=== PATIENT | female | born 1960 | race Caucasian/White ===

== ENCOUNTER 2017-07-06 12:53 | Emergency (ER) | payer OTHER ==
[2017-07-06] MEDS ORDERED: ONDANSETRON HCL INJ/PF 4 MG/2 ML SDV IV ONE (13:12)
[2017-07-06] MEDS ORDERED: MORPHINE SULFATE 10 MG/ML INJ IV ONE ×2 (13:12→14:06)
[2017-07-06] MEDS ORDERED: NORMAL SALINE 1000 ML 1,000 ML IV ONE (13:13)
[2017-07-06] MEDS ORDERED: KETOROLAC TROMETHAMINE INJ/PF 30 MG/1 ML SDV IV ONE (14:07)
--- NOTE | 2017-07-06 14:10 | RADIOLOGY REPORT (SQ) ---
EXAM DESCRIPTION: WRIST LEFT 3 VIEWS COMPLETED DATE/TIME: 07/06/2017 1:51 pm REASON FOR STUDY: fall pain :( COMPARISON: None. NUMBER OF VIEWS: Three views. TECHNIQUE: AP, lateral, and oblique radiographic images acquired of the left wrist. LIMITATIONS: None. FINDINGS: MINERALIZATION: Osteopenia. BONES: Old fracture base of 1st metacarpal. No acute fracture or dislocation. No worrisome bone les ions. Normal alignment. SOFT TISSUES: No soft tissue swelling. No foreign body. OTHER: No other significant finding. IMPRESSION: NO RADIOGRAPHIC EVIDENCE OF ACUTE INJURY. TECHNICAL DOCUMENTATION: JOB ID: [id number] [employer]- All Rights Reserved
--- NOTE | 2017-07-06 14:11 | RADIOLOGY REPORT (SQ) ---
EXAM DESCRIPTION: WRIST RIGHT 3 VIEWS COMPLETED DATE/TIME: 07/06/2017 1:51 pm REASON FOR STUDY: fall pain :( COMPARISON: None. NUMBER OF VIEWS: Three views. TECHNIQUE: AP, lateral, and oblique radiographic images acquired of the right wrist. LIMITATIONS: None. FINDINGS: MINERALIZATION: Osteopenia. BONES: Old fracture ulnar styloid. Acute comminuted fracture of the distal radius extends into the r adiocarpal joint. Mild lateral displacement of the ulnar styloid. SOFT TISSUES: No soft tissue swelling. No foreign body. OTHER: No other significant finding. IMPRESSION: Fracture of the distal radius. TECHNICAL DOCUMENTATION: JOB ID: [id number] [employer]- All Rights Reserved
--- NOTE | 2017-07-06 14:30 | RADIOLOGY REPORT (SQ) ---
EXAM DESCRIPTION: ELBOW RIGHT OVER 2 VIEWS COMPLETED DATE/TIME: 07/06/2017 2:17 pm REASON FOR STUDY: fall pain :( COMPARISON: None. NUMBER OF VIEWS: Four views. TECHNIQUE: AP, lateral, and both oblique radiographic images acquired of the right elbow. LIMITATIONS: None. FINDINGS: MINERALIZATION: Normal. BONES: No acute fracture or dislocation. No worrisome bone lesions. JOINT: No joint effusion or displacement of the elbow fat pads. 3 mm well corticated ossicle at the tip of the coronoid process of the ulna, could be an old avulsion fragment or small loose body SOFT TISSUES: There is olecranon soft tissue swelling. No foreign body. OTHER: No other significant finding. IMPRESSION: Olecranon soft tissue swelling. No acute fracture TECHNICAL DOCUMENTATION: JOB ID: [id number]- All Rights Reserved
[2017-07-06] MEDS ORDERED: ONDANSETRON ODT 4 MG TAB (6 TAB/DSPK) PO PRN (15:08)
[2017-07-06] MEDS ORDERED: HYDROCODONE/ACETAMINOPHEN 5-325 MG 6 TAB/DSPK PO PRN (15:08)
--- NOTE | 2017-07-06 15:16 | ER Document Report ---
ED General - General Chief Complaint: Arm Injury Stated Complaint: FALL AT WORK/ARM PAIN Time Seen by Provider: 07/06/17 13:12 - HPI Patient complains to provider of: Right arm injury Notes: Patient coming in for evaluation of right arm injury. Patient states had a slip and fall at work. Patient still fell backwards on outstretched hand. Patient denies any loss consciousness denies any chest pain abdominal pain headaches prior to during or after the fall. Patient is placed in sling to her right arm. Denies any shoulder pain. States slight elbow pain. States slight pain in her left wrist as well per - Related Data Allergies/Adverse Reactions: aspirin Allergy (Verified 07/06/17 14:08) Penicillins Allergy (Verified 07/06/17 14:07) Past Medical History - Social History Smoking Status: Former Smoker Chew tobacco use (# tins/day): No Frequency of alcohol use: Rare Drug Abuse: None Family History: Reviewed & Not Pertinent Past Surgical History: Reports: Hx Section, Hx Tubal Ligation Review of Systems - Review of Systems Constitutional: No symptoms reported EENT: No symptoms reported Cardiovascular: No symptoms reported Respiratory: No symptoms reported Gastrointestinal: No symptoms reported Genitourinary: No symptoms reported Female Genitourinary: No symptoms reported Musculoskeletal: Other - Arm pain Skin: No symptoms reported Hematologic/Lymphatic: No symptoms reported Neurological/Psychological: No symptoms reported Physical Exam - Vital signs Vitals: Resp 18 07/06/17 15:04 Interpretation: Normal - General General appearance: Appears well, Alert - HEENT Head: Normocephalic, Atraumatic Eyes: Normal Pupils: PERRL - Respiratory Respiratory status: No respiratory distress Chest status: Nontender Breath sounds: Normal Chest palpation: Normal - Cardiovascular Rhythm: Regular Heart sounds: Normal auscultation Murmur: No - Abdominal Inspection: Normal Distension: No distension Bowel sounds: Normal Tenderness: Nontender Organomegaly: No organomegaly - Back Back: Normal, Nontender - Extremities General upper extremity: Tender, Normal color, Normal temperature. No: Normal inspection - Deformity to the right wrist with slight swelling pain to range of motion General lower extremity: Normal inspection, Nontender, Normal color, Normal ROM , Normal temperature, Normal weight bearing. No: Pattie's sign - Neurological Neuro grossly intact: Yes Cognition: Normal Orientation: AAOx4 Damon Coma Scale Eye Opening: Spontaneous Damon Coma Scale Verbal: Oriented Damon Coma Scale Motor: Obeys Commands Damon Coma Scale Total: 15 Speech: Normal Motor strength normal: LUE, RUE, LLE, RLE Sensory: Normal - Psychological Associated symptoms: Normal affect, Normal mood - Skin Skin Temperature: Warm Skin Moisture: Dry Skin Color: Normal Course - Re-evaluation Re-evalutation: 07/06/17 15:12 X-ray shows a comminuted radius fracture distal that involve the joint space. Discussed with orthopedic PA will continue with sugar tong splint and sling follow-up with orthopedist tomorrow. No change in treatment. - Vital Signs Vital signs: Temp Pulse Resp BP Pulse Ox 18 07/06/17 15:04 Discharge - Discharge Clinical Impression: Distal radius fracture, left Qualifiers: Encounter type: initial encounter Fracture type: closed Fracture morphology: unspecified fracture morphology Qualified Code(s): S52.502A - Unspecified fracture of the lower end of left radius, initial encounter for closed fracture Condition: Good Disposition: HOME, SELF-CARE Instructions: Fractured Radius ([facility]), Oral Narcotic Medication ([facility]) Additional Instructions: Follow-up with the orthopedic doctor provided. I will suggest calling him this afternoon or tomorrow. Take medications as prescribed. Return to ER symptoms worsen. SHe may also take Tylenol and Motrin Prescriptions: Ondansetron [Zofran Odt 4 mg Tablet] 4 mg PO Q4HP PRN #30 tab.rapdis PRN Reason: Docusate Sodium [Colace] 100 mg PO DAILY #30 capsule Oxycodone HCl 5 mg PO Q6 #30 tablet Forms: Return to Work Referrals: BRITNEY MORSE MD [ACTIVE STAFF] - Follow up as needed
[2017-07-06 15:37] VITALS: BP 118/66
== END 2017-07-06 15:40 | disposition home or self-care (01) ==
LOC: ER 12:53
DX: S52.502A Unspecified fracture of the lower end of left radius, initial encounter for closed fracture (principal); M79.601 Pain in right arm; M25.532 Pain in left wrist; M25.522 Pain in left elbow; Z87.891 Personal history of nicotine dependence; W01.0XXA Fall on same level from slipping, tripping and stumbling without subsequent striking against object, initial encounter
CPT/HCPCS: 96376; 99284; 96361; 96374; 96375; 73080; 73110 ×2; J1885; J2270; J2405; J7030

== ENCOUNTER 2017-08-10 06:02 | Day surgery (SDC) | payer OTHER ==
[2017-08-03 10:05] LABS: ABSOLUTE BASOPHILS # (AUTO) 0.1 10^3/uL (0.0-0.2); ABSOLUTE EOSINOPHILS # (AUTO) 0.2 10^3/uL (0.0-0.6); ABSOLUTE LYMPHOCYTES (AUTO) 2.1 10^3/uL (0.5-4.7); ABSOLUTE MONOCYTES (AUTO) 0.9 10^3/uL (0.1-1.4); ABSOLUTE NEUT (AUTO) 4.6 10^3/uL (1.7-8.2); BASOPHILS % (AUTO) 1.2 % (0-2); HEMATOCRIT 42.4 % (36.0-47.0); HEMOGLOBIN 14.6 g/dL (12.0-15.5); HGB HCT DIFFERENCE 1.4; LYMPHOCYTES % (AUTO) 27.1 % (13-45); MEAN CORPUSCULAR HEMOGLOBIN 30.5 pg (27.0-33.4); MEAN CORPUSCULAR HGB CONC 34.4 g/dL (32.0-36.0); MEAN CORPUSCULAR VOLUME 89 fl (80-97); MONOCYTES % (AUTO) 11.5 % (3-13); RED BLOOD COUNT 4.79 10^6/uL (3.72-5.28); RED CELL DISTRIBUTION WIDTH 12.8 % (11.5-14.0); SEGMENTED NEUTROPHILS % (AUTO) 58.2 % (42-78); WHITE BLOOD COUNT 7.9 10^3/uL (4.0-10.5)
[2017-08-03 10:15] LABS: APPEARANCE,URINE CLEAR; BILIRUBIN,URINE NEGATIVE (NEGATIVE); GLUCOSE, URINE NEGATIVE (NEGATIVE); KETONES,URINE NEGATIVE (NEGATIVE); LEUKOCYTE ESTERASE,URINE NEGATIVE (NEGATIVE); NITRITE,URINE NEGATIVE (NEGATIVE); PROTEIN,URINE NEGATIVE (NEGATIVE); URINE SPECIFIC GRAVITY 1.021; UROBILINOGEN,URINE NEGATIVE mg/dL (<2.0)
[2017-08-03 10:35] LABS: ANION GAP 15 (5-19); BLOOD UREA NITROGEN 18 mg/dL (7-20); CALCIUM 9.9 mg/dL (8.4-10.2); CARBON DIOXIDE 25 mmol/L (22-30); CHLORIDE 101 mmol/L (98-107); GLUCOSE 95 mg/dL (75-110); POTASSIUM 4.7 mmol/L (3.6-5.0); SODIUM 141.4 mmol/L (137-145)
--- NOTE | 2017-08-03 10:37 | RADIOLOGY REPORT (SQ) ---
EXAM DESCRIPTION: CHEST PA/LATERAL COMPLETED DATE/TIME: 08/03/2017 9:36 am REASON FOR STUDY: PRE-OP COMPARISON: None. EXAM PARAMETERS: NUMBER OF VIEWS: two views TECHNIQUE: Digital Frontal and Lateral radiographic views of the chest acquired. RADIATION DOSE: NA LIMITATIONS: none FINDINGS: LUNGS AND PLEURA: No opacities, masses or pneumothorax. No pleural effusion. MEDIASTINUM AND HILAR STRUCTURES: No masses or contour abnormalities. HEART AND VASCULAR STRUCTURES: Heart normal size. No evidence for failure. BONES: No acute findings. HARDWARE: None in the chest. OTHER: No other significant finding. IMPRESSION: NO SIGNIFICANT RADIOGRAPHIC FINDING IN THE CHEST. TECHNICAL DOCUMENTATION: JOB ID: [id number] [employer]- All Rights Reserved
--- NOTE | 2017-08-03 19:40 | EKG REPORT ---
SEVERITY:- NORMAL ECG - SINUS RHYTHM : Confirmed by: Isabel Duenas MD 03-Aug-2017 19:39:59
[~2017-08-10 06:02] MED LIST: CEFAZOLIN 2 GM/D5W RTU 2 GM/50 ML RTUPB IV PRN
[2017-08-10] MEDS ORDERED: BUPIVACAINE HCL 0.25% /EPINEPHRINE INJ/PF 30 ML SDV ONE (07:22)
[2017-08-10] MEDS ORDERED: KETAMINE HCL INJ 500 MG/10 ML VIAL ONE (07:24)
[2017-08-10] MEDS ORDERED: MIDAZOLAM 2 MG/2 ML INJ ONE (07:24)
[2017-08-10] MEDS ORDERED: FENTANYL CITRATE INJ/PF 100 MCG/2 ML AMPUL ONE (07:24)
[2017-08-10] MEDS ORDERED: PROPOFOL INJ 200 MG/20 ML VIAL IV ONE (07:24)
[2017-08-10] MEDS ORDERED: MORPHINE SULFATE 10 MG/ML INJ IV PRN (08:24)
[2017-08-10] MEDS ORDERED: PROMETHAZINE HCL INJ 25 MG/1 ML VIAL IV PRN ×2 (08:24)
[2017-08-10] MEDS ORDERED: OXYCODONE-ACETAMINOPHEN 5-325 MG TABLET PO PRN ×2 (08:24)
[2017-08-10] MEDS ORDERED: DIPHENHYDRAMINE HCL 50 MG/ML VIAL IV PRN (08:24)
[2017-08-10] MEDS ORDERED: MEPERIDINE HCL/PF INJ 25 MG/1 ML DISP.SYRIN IV PRN (08:24)
[2017-08-10] MEDS ORDERED: FENTANYL CITRATE INJ/PF 100 MCG/2 ML AMPUL IV PRN ×3 (08:24)
--- NOTE | 2017-08-10 08:59 | Operative Report ---
Operative Report DATE OF SURGERY: 08/10/17 PREOPERATIVE DIAGNOSIS: Right distal radial malunion OPERATION: Takedown of the malunion and open reduction and internal fixation of radial styloid fracture SURGEON: BRITNEY MORSE ANESTHESIA: GA ESTIMATED BLOOD LOSS: Minimal PROCEDURE: With the patient supine on the operative table the right upper extremities prepped and draped in a sterile fashion. The limb was elevated for exsanguination and tourniquet inflated 280 torr. Longitudinal incision was made over the radial surface of the distal radius. Blunt dissection was used to expose the underlying extensor tendon sheath with great care taken to notify and preserve the superficial radial nerve. The tendon sheath is then opened and the tendons are dislocated dorsally. The underlying radial styloid is probed with a needle to find the location of the malunion. This is confirmed with fluoroscopy. A [place] is then inserted into the nonunion used to mobilize the radial styloid fracture which is leading to an articular incongruity. Once its mobilized direct pressure was used to create a reduction and a pin is placed a temporary hold it. This is again checked with fluoroscopy and felt to be reasonable. Next a Arline titanium radial distal plate is applied to the radial surface of the styloid and held in place with one pin distally and then 3 screws proximally. The most distal pin is then bent in a U shape and impacted back into the plate through a separate hole. The entire construct is reviewed fluoroscopically and felt to demonstrate adequate hardware placement in what appears to be a near if not completely anatomic reduction of the articular surface. The tourniquet is deflated. The wound was irrigated. The wound was closed using interrupted Vicryl followed by nylon. Sterile compressive dressing and a wrist brace are applied and the patient's return to the PACU in satisfactory condition.
[2017-08-10] MEDS ORDERED: ACETAMINOPHEN 100 ML IV ONE (09:16)
[2017-08-10] MEDS ORDERED: HYDROCODONE/ACETAMINOPHEN 5-325 MG TABLET PO PRN (09:24)
[2017-08-10] MEDS ORDERED: ONDANSETRON 4 MG TAB.RAPDIS PO PRN (09:24)
[2017-08-10] MEDS: FENTANYL CITRATE INJ/PF 100 MCG/2 ML AMPUL ONE ×2 (09:30→09:35)
[2017-08-10] MEDS ORDERED: MORPHINE SULFATE 10 MG/ML INJ ONE (09:39)
--- NOTE | 2017-08-10 09:39 | RADIOLOGY REPORT (SQ) ---
EXAM DESCRIPTION: NO CHG FLUORO; WRIST RIGHT 2 VIEWS COMPLETED DATE/TIME: 08/10/2017 9:14 am REASON FOR STUDY: ORIF RT WRIST ASSISTED WITH FLUORO IN OR S52.501D UNSP FX THE LOWER END R RAD, [place] BS FOR CLOS FX W ROU COMPARISON: 07/06/2017. FLUOROSCOPY TIME: 29 seconds. 2 images saved to PACS. TECHNIQUE: Intra-operative images acquired during surgical procedure to evaluate progress. NUMBER OF IMAGES: 2 images. LIMITATIONS: None. FINDINGS: Surgical fixation of the fracture of the distal radius with placement of hardware. IMPRESSION: IMAGE(S) OBTAINED DURING PROCEDURE. COMMENT: Quality ID 145: Final reports for procedures using fluoroscopy that document radiation exp osure indices, or exposure time and number of fluorographic images (if radiation exposure indices are not available) Please consult full operative report of the attending physician for description of the procedure. TECHNICAL DOCUMENTATION: JOB ID: [id number] [employer]- All Rights Reserved
[2017-08-10 11:38] VITALS: BP 127/68
[2017-08-10] MEDS ORDERED: DEXAMETHASONE SOD PHOSPHATE INJ 4 MG/1 ML VIAL ONE (12:11)
[2017-08-10] MEDS ORDERED: ONDANSETRON HCL INJ/PF 4 MG/2 ML SDV ONE (12:11)
== END 2017-08-10 11:20 | disposition home or self-care (01) ==
LOC: OROUT 06:02
PROVIDERS: ATTEND Orthopaedic Surgery
PROC: 0PSH04Z Reposition Right Radius with Internal Fixation Device, Open Approach (ICD-10-PCS; principal; 2017-08-10 08:15)
DX: S52.501D Unspecified fracture of the lower end of right radius, subsequent encounter for closed fracture with routine healing (principal); W19.XXXD Unspecified fall, subsequent encounter
CPT/HCPCS: 93005; 36415; 85025; 80048; 81001; 71020; 73100; 93010; 25405; C1713; J2250; J3490 ×2; J1100; S0119; J3010; J2270; J2405; J2704; J0690; J0131; 01830

== ENCOUNTER 2018-08-22 05:29 | Day surgery (SDC) | payer OTHER ==
--- NOTE | 2018-08-15 09:26 | RADIOLOGY REPORT (SQ) ---
EXAM DESCRIPTION: CHEST PA/LATERAL COMPLETED DATE/TIME: 08/15/2018 9:07 am REASON FOR STUDY: PRE-OP COMPARISON: 2017. TECHNIQUE: Frontal and lateral radiographic views of the chest acquired. NUMBER OF VIEWS: Two view. LIMITATIONS: None. FINDINGS: LUNGS AND PLEURA: Mild chronic scar in the lingula. Lungs otherwise clear. Stable appear ance. MEDIASTINUM AND HILAR STRUCTURES: No masses or contour abnormalities. HEART AND VASCULAR STRUCTURES: Heart normal size. No evidence for failure. BONES: No acute findings. HARDWARE: None in the chest. OTHER: No other significant finding. IMPRESSION: NO SIGNIFICANT RADIOGRAPHIC FINDING IN THE CHEST. TECHNICAL DOCUMENTATION: JOB ID: [id number] [employer]- All Rights Reserved Reading location - IP/workstation name: [email or web address]
[2018-08-15 10:08] LABS: HEMATOCRIT 40.9 % (36.0-47.0); HEMOGLOBIN 14.1 g/dL (12.0-15.5); MEAN CORPUSCULAR HEMOGLOBIN 30.8 pg (27.0-33.4); MEAN CORPUSCULAR HGB CONC 34.5 g/dL (32.0-36.0); MEAN CORPUSCULAR VOLUME 89 fl (80-97); PLATELET COUNT 336 10^3/uL (150-450); RED BLOOD COUNT 4.59 10^6/uL (3.72-5.28); RED CELL DISTRIBUTION WIDTH 12.7 % (11.5-14.0); WHITE BLOOD COUNT 6.2 10^3/uL (4.0-10.5)
[2018-08-15 10:21] LABS: AMORPHOUS SEDIMENT,URINE 1+ /HPF; APPEARANCE,URINE TURBID; BILIRUBIN,URINE NEGATIVE (NEGATIVE); GLUCOSE, URINE NEGATIVE (NEGATIVE); KETONES,URINE NEGATIVE (NEGATIVE); LEUKOCYTE ESTERASE,URINE NEGATIVE (NEGATIVE); NITRITE,URINE NEGATIVE (NEGATIVE); PROTEIN,URINE NEGATIVE (NEGATIVE); URINE SPECIFIC GRAVITY 1.025; UROBILINOGEN,URINE NEGATIVE mg/dL (<2.0)
[2018-08-15 10:22] LABS: COLOR,URINE YELLOW
[2018-08-15 10:27] LABS: ANION GAP 9 (5-19); BLOOD UREA NITROGEN 21 mg/dL (7-20); CALCIUM 9.7 mg/dL (8.4-10.2); CARBON DIOXIDE 30 mmol/L (22-30); CHLORIDE 103 mmol/L (98-107); GLUCOSE 103 mg/dL (75-110); POTASSIUM 4.6 mmol/L (3.6-5.0); SODIUM 141.8 mmol/L (137-145)
--- NOTE | 2018-08-15 11:22 | EKG REPORT ---
SEVERITY:- BORDERLINE ECG - SINUS RHYTHM BORDERLINE INFERIOR Q WAVES : Confirmed by: Ponce Farr 15-Aug-2018 11:22:09
[~2018-08-22 05:29] MED LIST changes: -CEFAZOLIN 2 GM/D5W RTU 2 GM/50 ML RTUPB IV PRN; +CLINDAMYCIN 600 MG/D5W RTU 600 MG/50 ML RTUPB IV PRN; +LACTATED RINGERS 1000 ML IV PRN; +LIDOCAINE 0.5% INJ-PF (5 MG/ML) 50 ML SDV SUBCUT PRN
[2018-08-22] MEDS ORDERED: CLINDAMYCIN 600 MG/D5W RTU 600 MG/50 ML RTUPB IV ONE (05:39)
[2018-08-22] MEDS ORDERED: LIDOCAINE 2% INJ-PF (20 MG/ML) 10 ML AMPUL ONE (06:16)
[2018-08-22] MEDS ORDERED: PROPOFOL INJ 200 MG/20 ML VIAL IV ONE (06:16)
[2018-08-22] MEDS ORDERED: ACETAMINOPHEN 1,000 MG/100 ML RTUPB IV ONE (06:16)
[2018-08-22] MEDS ORDERED: DEXAMETHASONE SOD PHOSPHATE INJ 4 MG/1 ML VIAL ONE (06:16)
[2018-08-22] MEDS ORDERED: MIDAZOLAM 2 MG/2 ML INJ ONE (06:16)
[2018-08-22] MEDS ORDERED: FENTANYL CITRATE INJ/PF 100 MCG/2 ML AMPUL ONE (06:16)
[2018-08-22] MEDS ORDERED: ONDANSETRON HCL INJ/PF 4 MG/2 ML SDV ONE (06:16)
[2018-08-22] MEDS ORDERED: BUPIVACAINE HCL 0.5 % INJ/PF 30 ML SDV ONE (06:26)
[2018-08-22] MEDS ORDERED: FENTANYL CITRATE INJ/PF 100 MCG/2 ML AMPUL IV PRN ×3 (08:02)
[2018-08-22] MEDS ORDERED: MORPHINE SULFATE 10 MG/ML INJ IV PRN ×2 (08:02→08:43)
[2018-08-22] MEDS ORDERED: MEPERIDINE HCL/PF INJ 25 MG/1 ML DISP.SYRIN IV PRN (08:02)
[2018-08-22] MEDS ORDERED: PROMETHAZINE HCL INJ 25 MG/1 ML VIAL IV PRN ×2 (08:02)
[2018-08-22] MEDS ORDERED: DIPHENHYDRAMINE HCL 50 MG/ML VIAL IV PRN (08:02)
[2018-08-22] MEDS ORDERED: ONDANSETRON HCL INJ/PF 4 MG/2 ML SDV IV PRN ×2 (08:02→08:43)
[2018-08-22] MEDS ORDERED: OXYCODONE-ACETAMINOPHEN 5-325 MG TABLET PO PRN (08:43)
--- NOTE | 2018-08-22 08:44 | Discharge Summary ---
Discharge Summary (SDC) - Discharge Final Diagnosis: Painful hardware right wrist Date of Surgery: 08/22/18 Discharge Date: 08/22/18 Condition: Good Treatment or Instructions: Schedule Follow Up w/ Dr. Chino Vigil @ [facility] for Surgery to be seen in 10-14 days or as scheduled [place]: [place]: [place]: Ice and elevate Keep splint clean/dry/intact. If your fingers become numb please unwrap the Herman wrap but leave the splint in place, if the sensation does not return within 30 minutes please return to the emergency department. May begin finger range of motion attempting to make full fist. You may also use acetaminophen (Tylenol) 1000 mg every 4-6 hours as needed for pain or fever. Please be aware that many medications contain acetaminophen, do not exceed a total of 1000 mg of acetaminophen every 6 hours. If ibuprofen and acetaminophen are not sufficient for your pain you may take the Percocet/Witten. Please be aware that the Percocet/Witten does contain Tylenol. Stool softener of choice when on pain medication. Prescriptions: Oxycodone HCl/Acetaminophen [Percocet 5-325 mg Tablet] 1 tab PO Q6 PRN #25 tab PRN Reason: Referrals: GABRIEL COX [Primary Care Provider] - Discharge Diet: As Tolerated Respiratory Treatments at Home: Deep Breathing/Coughing Discharge Activity: No Lifting Over 10 Pounds, No Lifting/Push/Pulling Report the Following to Your Physician Immediately: Fever over 101 Degrees, Unusual Bleeding, Redness, Swelling, Warmth, Increased Soreness
--- NOTE | 2018-08-22 08:46 | Operative Report ---
Operative Report DATE OF SURGERY: 08/22/18 PREOPERATIVE DIAGNOSIS: Painful Hardware right wrist. Right wrist pain POSTOPERATIVE DIAGNOSIS: 1. Painful hardware right wrist. 2. Degenerative TFCC tear right wrist OPERATION: 1. Surgical arthroscopy right wrist with debridement TFCC tear. 2. Hardware removal right wrist with superficial radial nerve neuro lysis SURGEON: KEMAL VENTURA ANESTHESIA: GA COMPLICATIONS: None ESTIMATED BLOOD LOSS: Minimal PROCEDURE: Indication for above procedure: 58-year-old female who sustained a fracture of her radial styloid. Patient underwent successful open reduction internal fixation. Postoperatively she progressed appropriately but continued to have discomfort on the ulnar aspect of the wrist and pain along the radial aspect of the wrist likely secondary to the hardware. At that point we discussed treatment options given the nature of her injury underlying TFCC pathology was likely which coincided with patient's examination findings. At that point we discussed treatment options and decision was made to proceed with operative intervention. Procedure In Detail: Patient was seen and evaluated in the preoperative holding area. The RIGHT upper extremity was initialized and marked. Patient received 2g of Ancef IV for bacterial prophylaxis. Patient was taken back to the operative room where transferred to the operative table and placed under general anesthesia. Once they were adequately anesthetized a nonsterile tourniquet was placed on the upper extremity. A surgical team debriefing was performed ensuring all instrumentation was available, the surgical procedure was discussed with possible concerns reviewed. The upper extremity was prepped with chlorhexidine and alcohol and draped in a sterile fashion. Patient was placed in the [employer] wrist distraction system. A timeout was done identifying correct patient, procedure and extremity everyone in attendance agree with this and verbalized no concerns. The extremity was exsanguinated the tourniquet was inflated to 250 mmHg. A 3-4 portal was established via dry arthroscopy a 4-5 portal was established as well. Under direct visualization there is no evidence of intra-articular screw penetration. There was mild chondral damage along the sulcus between the scaphoid and lunate which was debrided with chondroplasty. There is no evidence of scapholunate ligament disruption. Arthroscopy of the ulnar aspect of the wrist demonstrated degenerative radial sided TFCC tear. With the meniscal biters the edges were resected. And debrided with the full-radius resector and [employer] wand to a normal stable base. A midcarpal radial portal was established and via triangulation a midcarpal ulnar portal established. Direct visualization of the lunotriquetral interval interval demonstrated step-off but no widening when I attempted to place the arthroscopic probe, consistent with Giesler I/II. No evidence of no abnormality of the scapholunate interval appreciated. There is no evidence of midcarpal arthritis throughout the capitate scaphoid/lunate articulation or hamate triquetral articulation. Previous skin incision was utilized along the radial styloid. Blunt dissection performed. There was scarring of the superficial radial nerve which was neurolysed. There was no evidence of discontinuity or damage. The first dorsal compartment tendons were then tenolys to expose the underlying radial styloid plate.ed the distal pin was then removed. The remaining screws were removed successfully. The screw holes were then curetted. At completion patient had full wrist range of motion there is no crepitus with range of motion. Negative Paniagua's maneuver. No evidence of DRUJ instability. Wounds were copiously irrigated with normal saline. Skin was closed with interrupted 4-0 nylon suture. 20 cc of 0.5% bupivacaine without epinephrine was injected for postoperative pain control. Patient was placed in a volar wrist splint. Tourniquet was deflated. Patient had good peripheral perfusion. Sponge counts, instrument counts, needle counts were correct. Patient was then awoken from anesthesia. Transferred from the operating room table to the operating room stretcher. There was no intraoperative complications patient tolerated procedure well stable to PACU. Postoperative plan: Patient follow-up the office in 2 weeks for recheck and suture removal. Will begin range of motion at that time.
[2018-08-22] MEDS: FENTANYL CITRATE INJ/PF 100 MCG/2 ML AMPUL ONE ×3 (09:00→09:10)
--- NOTE | 2018-08-22 09:30 | RADIOLOGY REPORT (SQ) ---
EXAM DESCRIPTION: WRIST RIGHT 2 VIEWS; NO CHG FLUORO COMPLETED DATE/TIME: 08/22/2018 9:12 am REASON FOR STUDY: HARDWARE REMOVAL RT WRIST ASST WITH FLUORO IN OR T84.398A [facility] COMPL OF OTH BONE DEVICES, IMPLANTS AND GRAFTS COMPARISON: 07/06/2017 FLUOROSCOPY TIME: 5 second 3 images saved to PACS. TECHNIQUE: Intra-operative images acquired during surgical procedure to evaluate progress. NUMBER OF IMAGES: 3 LIMITATIONS: None. FINDINGS: Intraoperative fluoroscopic images obtained to evaluate progress in the operating room. P lease see operative report for detailed description of the procedure. IMPRESSION: IMAGE(S) OBTAINED DURING PROCEDURE. COMMENT: Quality ID 145: Final reports for procedures using fluoroscopy that document radiation exp osure indices, or exposure time and number of fluorographic images (if radiation exposure indices are not available) Please consult full operative report of the attending physician for description of the procedure. TECHNICAL DOCUMENTATION: JOB ID: [id number] [employer]- All Rights Reserved Reading location - IP/workstation name: [email or web address]
--- NOTE | 2018-08-22 09:30 | RADIOLOGY REPORT (SQ) ---
EXAM DESCRIPTION: WRIST RIGHT 2 VIEWS; NO CHG FLUORO COMPLETED DATE/TIME: 08/22/2018 9:12 am REASON FOR STUDY: HARDWARE REMOVAL RT WRIST ASST WITH FLUORO IN OR T84.398A [facility] COMPL OF OTH BONE DEVICES, IMPLANTS AND GRAFTS COMPARISON: 07/06/2017 FLUOROSCOPY TIME: 5 second 3 images saved to PACS. TECHNIQUE: Intra-operative images acquired during surgical procedure to evaluate progress. NUMBER OF IMAGES: 3 LIMITATIONS: None. FINDINGS: Intraoperative fluoroscopic images obtained to evaluate progress in the operating room. P lease see operative report for detailed description of the procedure. IMPRESSION: IMAGE(S) OBTAINED DURING PROCEDURE. COMMENT: Quality ID 145: Final reports for procedures using fluoroscopy that document radiation exp osure indices, or exposure time and number of fluorographic images (if radiation exposure indices are not available) Please consult full operative report of the attending physician for description of the procedure. TECHNICAL DOCUMENTATION: JOB ID: [id number] [employer]- All Rights Reserved Reading location - IP/workstation name: [email or web address]
[2018-08-22] MEDS ORDERED: OXYCODONE-ACETAMINOPHEN 5-325 MG TABLET ONE (09:52)
[2018-08-22 11:02] VITALS: BP 129/78
[2018-08-22] MEDS ORDERED: SUCCINYLCHOLINE CHLORIDE INJ 200 MG/10 ML VIAL ONE (15:08)
== END 2018-08-22 10:50 | disposition home or self-care (01) ==
LOC: OROUT 05:29
PROVIDERS: ATTEND Orthopaedic Surgery
DX: T84.84XA Pain due to internal orthopedic prosthetic devices, implants and grafts, initial encounter (principal); Y83.8 Other surgical procedures as the cause of abnormal reaction of the patient, or of later complication, without mention of misadventure at the time of the procedure; S63.591A Other specified sprain of right wrist, initial encounter; X58.XXXA Exposure to other specified factors, initial encounter; M65.839 Other synovitis and tenosynovitis, unspecified forearm; D68.0 Von Willebrand disease; K21.9 Gastro-esophageal reflux disease without esophagitis; Z88.6 Allergy status to analgesic agent; Z88.0 Allergy status to penicillin; Z87.891 Personal history of nicotine dependence
CPT/HCPCS: 93005; 36415; 85027; 80048; 81001; 71046; 73100; 93010; 20680; 29846; J2250; J3490 ×2; J1100; J3010; J0330; J2405; J2704; J0131; 01830